=== PATIENT | male | born 1940 | race Caucasian/White ===

== ENCOUNTER 2017-01-14 05:44 | Day surgery (SDC) | payer MEDICARE ==
[2017-01-14] VITALS (7 sets, daily range): BP systolic 103–143; BP diastolic 48–85; PULSE 60–75; RESP 15–18; O2SAT 92–99
[~2017-01-14] VITALS: Ht 177.8 cm; Wt 76.5 kg
[2017-01-14] MEDS: Lactated Ringer's 1,000 ML IV SCH ×2 (05:14→07:26)
[2017-01-14] MEDS ORDERED: Rocuronium 10 mg/mL 5 mL Inj ONE (05:45)
[2017-01-14] MEDS ORDERED: Propofol 10,000 mCg/mL 20 mL Inj ONE (05:45)
[2017-01-14] MEDS ORDERED: EPHEDrine/NS 5 mg/mL 5 mL Syringe ONE (05:45)
[2017-01-14] MEDS ORDERED: Dexamethasone 4 mg/mL Inj ONE (05:45)
[2017-01-14] MEDS ORDERED: Glycopyrrolate 0.2 MG/ML 1mL Inj ONE (05:45)
[2017-01-14] MEDS ORDERED: MetoCLOpramide 5 mg/mL 2 mL Inj ONE (05:45)
[2017-01-14] MEDS ORDERED: Neostigmine 1 mg/mL 10 mL Inj ONE (05:45)
[2017-01-14] MEDS ORDERED: Ondansetron 2 mg/mL 2 mL Inj ONE (05:45)
[2017-01-14] MEDS ORDERED: fentaNYL-PF 50 mCg/mL 2 mL Inj ONE (05:45)
[2017-01-14] MEDS ORDERED: CeFAZolin Inj 2 GM in IV Premix 1 EACH IV ONE (06:00)
[2017-01-14] MEDS ORDERED: Bupivacaine-MPF 0.5% W/EPI 30 mL Inj INFILTRATE ONE (07:58)
[2017-01-14] MEDS ORDERED: Lactated Ringer's 1,000 ML IV SCH (08:02)
[2017-01-14] MEDS ORDERED: Lactated Ringer's 500 ML IV PRN (08:02)
--- NOTE | 2017-01-14 08:02 | PCM.HPANE ---
Patient Data Surgeon Admitting Provider: Attending Provider:Miguelito Cabrera MD Primary Care Physician:Jaskaran Worrell DO Other Provider:[facility] Reason for Visit Recurrent Left Inguinal Hernia Ht/WT & BMI Height (Feet): 5 Height (Inches): 10.00 Weight (Kilograms): 76.5 Body Mass Index 24.00 Allergies Coded Allergies: No Known Allergies (Unverified , 01/10/17) Past Anesthesia History Anesthesia History: Denies:: Anesthesia Reactions Diabetes History Hx Diabetes?: No Medications Home Meds Incl Beta Miky: No No Active Prescriptions or Reported Meds History History of ENT Problems?: No Hx of Heart Problems?: No Hx of Respiratory Problem?: No Respiratory History: Denies:: Oxygen Administration Use of C-PAP Machine Hx Neurologic Problems?: Yes Neurological History: Positive for:: Headaches (migraine hx) Denies:: CVA Multiple Sclerosis Parkinson's Disease Seizures Hx of GI Problems?: Yes Other GI Pertinent History: left inguinal hernia current admission problem Hx of Problems?: No Genitourinary History: Denies:: Kidney Stones Urinary Tract Infection Male Hx: Denies:: Prostate Problems Skin History: Denies:: History Skin Disorders? Pressure Ulcers Hx Musculoskeletal Problems?: No Musculoskeletal History: Denies:: Fibromyalgia Joint Replacement Musculoskeletal Trauma Hx Surgeries?: Yes (hernia) Hx Any Other Health Problems?: Yes Other History: Denies:: Cancer Thyroid Disease Hx Diabetes: No Hx Alcohol Use: YesAlcoholic Drinks Per Day: 6 drinks weeklyHx Substance Use: NoHave You Smoked inLast 12 mo: No Stop/Bang S-Snoring: Do You Snore Loudly: No T-Tired: feel tired, fatigued: No O-Obsered: Observed not breath: No P-Blood Pressure: treated: No B- Body Mass Index > 35 kg/m2: No A- Age over 50: Yes N- Neck Large Circumference: No G- Gender Male: Yes NAN Total Score: 2 Risk Assessment Category Category 1A: Patient has history of documented sleep apnea, and HAS NOT received any narcotic, sedative or anesthesia administration during this stay. Category 1B: Patient has history of documented sleep apnea, and HAS received any narcotic , sedative or anesthesia administration during this stay Category 2: Patient has SUSPECTED Obstructive Sleep Apnea, and HAS received any narcotic , sedative or anesthesia administration during this stay. Category 3: Patient has SUSPECTED Obstructive Sleep Apnea and HAS NOT received narcotic, sedative or anesthesia administration during this stay. Category 4: Outpatient in Procedural Areas with known sleep apnea or who screen positive for High Risk via the STOP/BANG questionnaire. Exam Exam Vital Signs Vital Signs Date Time Temp Pulse Resp B/P Pulse Ox O2 Delivery O2 Flow Rate FiO2 01/14/17 06:40 35.8 64 18 143/85 96 Room Air General Appearance: Alert, Oriented X3, Cooperative, No Acute Distress HEENT/AIRWAY: MP 2, Neck Movement (FROM), Mouth Opening (3 FBMO) Lungs: Clear to Auscultation, Normal Air Movement Heart: Exam Unremarkable, Regular Rate/Rhythm, No Murmurs/Rubs/Gallops Meds/Labs/Diagnostics Admission Meds Current Medications Lactated Ringer's (Lr) 1,000 ml @ 120 mls/hr [id number] IV Last administered on t 05:14; Start 01/14/17 at 05:00; Stop 01/14/17 at 13:19 Plan Impression Patient chart reviewed, patient interviewed and anesthestic plan with risks, benefits, and alternatives discussed, and informed consent obtained. NPO Status: 01/13 at 2100 ASA Physical Status: ASA2 Mod Systemic Disease Anesthetic Plan: GA Bene/Risks/Altern/Consents: Yes HP Complete Prior to Induction: Yes Krishna Montez MD Jan 14, 2017 06:57
[2017-01-14] MEDS ORDERED: HYDROmorphone 1 mg/mL Inj IVPUSH PRN (08:05)
[2017-01-14] MEDS ORDERED: Phenylephrine 10,000 mCg/mL Inj IVPUSH PRN (08:05)
[2017-01-14] MEDS ORDERED: hydrALAZINE 20 mg/mL Inj IVPUSH PRN (08:05)
[2017-01-14] MEDS ORDERED: Labetalol 5 mg/mL 4 mL Inj IV PRN (08:05)
[2017-01-14] MEDS ORDERED: Atropine 0.4 mg/mL Inj IVPUSH PRN (08:05)
[2017-01-14] MEDS ORDERED: EPHEDrine Sulfate 50 mg/mL Inj IVPUSH PRN (08:05)
[2017-01-14] MEDS ORDERED: Ondansetron 2 mg/mL 2 mL Inj IVPUSH PRN (08:05)
[2017-01-14] MEDS ORDERED: MetoCLOpramide 5 mg/mL 2 mL Inj IVPUSH PRN (08:05)
[2017-01-14] MEDS ORDERED: fentaNYL-PF 50 mCg/mL 2 mL Inj IVPUSH PRN (08:05)
[2017-01-14] MEDS ORDERED: Ketorolac 15 mg/mL Inj IVPUSH PRN (09:40)
--- NOTE | 2017-01-14 09:40 | PCM.DISURG ---
Surgical Discharge Instruction Date of Service Jan 14, 2017 Dates of Hospitalization Date of Hospital Admission Providers Admitting Physician: Primary Care Physician: Jaskaran Worrell DO Attending Physician: Miguelito Cabrera MD Discharge Diagnosis Discharge Diagnosis Bilateral inguinal hernias Diet Discharge Diet: No restrictions Activity Discharge Activity-General: Activity as pain allows, No lifting >15 pounds for 2 weeks Dressing and Incisional Care Dressing Care: Allow Steri Stripes to fall off, Remove outer dressing after 24 hrs Hygiene: May shower after (24 hours) Follow Up Plan Follow Up Plan In the general surgery [facility] postoperative clinic in 2-3 weeks Call your provider for: Fever (over 101.5), Vomiting, Discharge @ incision, pus discharge Miguelito Cabrera MD Jan 14, 2017 09:40
--- NOTE | 2017-01-14 09:48 | PCM.SURGOP ---
Surgical Operative Report Date of Service: Jan 14, 2017 Pre Operative Diagnosis Recurrent left inguinal hernia Post Operative Diagnosis Same, direct defect, indirect right inguinal hernia Procedure: Laparoscopic bilateral inguinal hernia repair with mesh Surgeon and Lobbyist: Surgeon: Miguelito Cabrera MD Assistants: Vladislav Broussard PA-C Indication for Procedure 76-year-old man who had a previous left inguinal hernia repair with mesh that had recurred, confirmed on ultrasound with a reducible loop of bowel. On exam, there was no evidence of right inguinal hernia. His ultrasound was in June 2015. He was recommended repair at that time, but he delayed pursuing surgical treatment. After discussion of risks and benefits, he agreed to proceed with laparoscopic left inguinal hernia repair with mesh, and understood that if I found an abnormality on the right, that the right side would be repaired as well. Findings: On the left, there was a small direct defect containing preperitoneal fat. On the right, there was a small indirect hernia containing preperitoneal fat. There was also a small indentation in the right femoral canal, but no true hernia. Procedure Details After smooth induction of general endotracheal anesthesia, he was placed in the supine position with both arms tucked, and was prepped and draped in wide sterile fashion. A procedural pause was performed according to the SCOAP checklist, and all were found to be in agreement. A curvilinear infraumbilical incision was made. Dissection was carried down with electrocautery until the midline fascia was incised vertically, and the peritoneal cavity was entered without difficulty. Inspection of the groins revealed the known recurrent left inguinal hernia, which was a direct defect, fairly small in size. On the right side, there was a small indirect defect, and an indentation over the right femoral canal without a true hernia. Two 5 mm ports were placed at the level of the umbilicus on the right and left under visualization. The left side was repaired first. A peritoneal flap was raised. Preperitoneal dissection was carried down with electrocautery and sharp dissection until the hernia sac was reduced off the cord. It stayed reduced completely when released. The midline symphysis pubis was skeletonized as well as Wilber's ligament. Lateral dissection was performed anterior to the inguinal ligament to allow enough space for placement of mesh. A repair was performed using the Bard 3-D Max mesh, left side, size large. This was positioned appropriately, and secured in place with the Optifix device. Tacks were placed to the symphysis pubis and Wilber's ligament medially, to the anterior abdominal wall both lateral and medial to the inferior epigastric vessels. There was excellent coverage of the hernia space. The peritoneal flap was then closed, which did not cause any distortion of the mesh. The flap was closed with Optifix tacks. The right side was then repaired by raising a peritoneal flap. Preperitoneal dissection was carried down until the hernia sac was dissected off the cord structures, and Wilber's ligament was skeletonized. Medially, the prior dissection was met and the left-sided mesh was visualized. A repair was performed using the Bard 3-D Max mesh, right side , size large. This was tacked in place using the Optifix device. Tacks were placed to the symphysis pubis and Wilber's ligament, with a small amount of overlap on the left-sided mesh. It was also tacked to the anterior abdominal wall, both medial and lateral to the inferior epigastric vessels. The peritoneal flap was then closed with Optifix tacks. Again, there was no distortion of the mesh with closure of the peritoneal flap. The 5 mm ports were removed under visualization, and pneumoperitoneum was released. The fascia of the umbilical port site was closed with an 0 Vicryl suture in a figure -of-eight. Steri-Strips and sterile dressings were applied. At the end the case all needle and sponge counts were correct 2. The patient was awakened from anesthesia without difficulty, and taken to the recovery room in satisfactory condition, having tolerated the procedure well. Complications There were no periprocedural complications identified. Surgical Specimen Removed: No Specimen sent to Pathology: Not applicable Anesthetic Plan: GA Grafts, Implants: Implants-See Implant Record Output, Estimated Blood Loss: 5 Blood Administration during snyder: No Drains: None Catheters: None copies to: Jaskaran Worrell Joshua D MD Jan 14, 2017 09:48
[2017-01-14] MEDS: HYDROcodone-APAP 5-325 mg Tablet PO PRN ×2 (10:08→10:59)
--- NOTE | 2017-01-14 10:23 | PCM.ANEP2 ---
Post Anesthesia Evaluation ASA/CMS Post Anesthesia VS in Patient's Normal Range?: Yes Resp Stable; Airway Patent?: Yes CV Function & Hydration Stable: Yes Mental Status Recovered?: Yes Pain control Satisfactory?: Yes N/V Control Satisfactory?: Yes Krishna Montez MD Jan 14, 2017 10:23
--- NOTE | 2017-01-14 10:23 | PCM.ANEP1 ---
Post Anesthesia Phase 1 PACU Phase 1 Assessment Date of Service: Jan 14, 2017 Vital Signs Vital Signs Date Time Temp Pulse Resp B/P Pulse Ox O2 Delivery O2 Flow Rate FiO2 01/14/17 10:02 65 16 106/53 92 Room Air 01/14/17 09:55 66 15 103/48 95 Room Air 01/14/17 09:40 65 16 118/54 99 Simple Mask 10 01/14/17 09:35 67 16 120/55 98 Simple Mask 10 01/14/17 09:30 36.1 75 18 128/57 98 Simple Mask 10 01/14/17 06:40 35.8 64 18 143/85 96 Room Air Anesthetic Administered: GA Level of Alertness: Awake, talking WOODSON's with Equal Strength: Yes Pain: No Nausea or Vomiting: No Oxygen Delivery: Simple Mask Lungs: Clear to Auscultation, Normal Air Movement Dermatome Level: Full Sensation Krishna Montez MD Jan 14, 2017 10:23
== END 2017-01-14 23:59 | disposition home or self-care (01) ==
LOC: SAS 05:44
PROVIDERS: ATTEND Student in an Organized Health Care Education/Training Program
DX: K40.91 Unilateral inguinal hernia, without obstruction or gangrene, recurrent (principal); K40.90 Unilateral inguinal hernia, without obstruction or gangrene, not specified as recurrent; G43.909 Migraine, unspecified, not intractable, without status migrainosus
CPT/HCPCS: 49650; C1781; J0690; J7120